=== PATIENT | male | born 1965 | race Caucasian/White ===

== ENCOUNTER 2024-01-11 21:44 | Emergency (ER) | payer MEDICARE, SELFPAY ==
[2024-01-11 21:46] VITALS: BP 145/89; PULSE 100; RESP 18; TEMP 36.8; O2SAT 96; BMI 35.0
--- NOTE | 2024-01-11 21:58 | CT_ITS ---
PROCEDURE INFORMATION: Exam: CT Lumbar Spine Without Contrast Exam date and time: 01/11/2024 10:09 PM Age: 58 years old Clinical indication: Low back pain; Prior surgery; Surgery date: 3-7 days post-operative; Surgery type: Decompression of lumbar spine, l4 & l5 fusion; Additional info: Recent surgery, eval TECHNIQUE: Imaging protocol: Computed tomography of the lumbar spine without contrast. Radiation optimization: All CT scans at this facility use at least one of these dose optimization techniques: automated exposure control; mA and/or kV adjustment per patient size (includes targeted exams where dose is matched to clinical indication); or iterative reconstruction. COMPARISON: No relevant prior studies available. FINDINGS: Limitations: Evaluation is limited by streak artifact. Bones/joints: Grade 1 anterolisthesis of L4 on L5. Patient is status post partial laminectomy and intervertebral disc spacer at the L4/L5 level. The left L5 screw is in close approximation to the lateral wall of the vertebral body, and the disc spacers placed along the left lateral margin of the L4/L5 articulation. Multilevel degenerative changes spine. Soft tissues: Small volume of edema and subcutaneous emphysema about the left paraspinal musculature and superficial fat. IMPRESSION: 1. The left L5 pedicle screw is along the lateral margin of the vertebral body, with majority of the screw appears breeched/not within the vertebral body. Recommend correlation with history/physical exam/immediate postoperative imaging if available. 2. Small volume of fluid and air within the left paraspinal region, this may represent postsurgical soft tissue changes; cannot exclude infectious etiology. Recommend correlation with physical exam and consider further evaluation contrast-enhanced MRI if clinical concern persists.
[2024-01-11] MEDS: METHOCARBAMOL 500MG TABLET 1500 MG PO (22:08)
[2024-01-11] MEDS: OXYCODONE 5MG IMMEDIATE RELEASE TABLET 5 MG PO (22:09)
[2024-01-11] MEDS: DEXAMETHASONE 4MG TABLET 10 MG PO (22:09)
--- NOTE | 2024-01-11 22:15 | HMH.EDGENADL ---
Discharge Plan Disposition Patient Disposition: Xfer Other Prescriptions Prescriptions: New prednisone 20 mg tablet 40 mg PO DAILY 5 Days Qty: 10 0RF Referrals Follow up/Referrals: Erick Wellington [Primary Care Provider] - See instructions Clinical Impressions Clinical Impression: Post-operative pain Instructions Patient Instructions: DI for Low Back Pain Discharge ED Provider: Cr Rea General Adult HPI <Davin Johnson MD - Last Filed: 01/11/24 22:58> General Chief complaint: Back Pain/Injury Stated complaint: postop 01/06 leg back pain Time Seen by Provider: 01/11/24 21:57 Mode of Arrival: Wheelchair Source of Information: Patient Limitations: No Limitations Description of Symptoms (Recalled from ER Triage Doc. by RN): Patient reports he had a surgery for decompression of lumbar spine, L4 & L5 fusion. Was discharged 01/07. On morning 01/08 patient began experiencing increasing pain which he thought was due to over exertion. Pain progressively worsened without relief from prescribed pain medications. He contacted his surgeon on Saturday whom suggested ice and if pain continued to proceed to evaluation in the Emergency department. Surgery done by Dr. Scooby Vazquez at [facility]. History of Present Illness HPI narrative: Please note that above description of symptoms, in this electronic medical record under categorization of recalled from ER triage doctor by RN are reflective of an initial nursing assessment, however, is not reflective of my full history and physical exam that was personally taken and clarified. Consequentially, this preceding description of symptoms, which may include the patient's categorized chief complaint in the EMR, do not reflect my personal clinical impression, and the ultimate description of history of present illness and patient stated complaints should be deferred to this section of the note. Unless stated otherwise or congruent with this section of the note, additional signs, symptoms, or incongruence should be interpreted as inaccurate with my clinical impression. Related Data Previous Rx's Medication Instructions Recorded prednisone 20 mg tablet 40 mg (2 x 20 mg) PO DAILY 5 days 01/11/24 #10 tabs Allergies Allergy/AdvReac Type Severity Reaction Status Date / Time No Known Allergies Allergy Verified 01/11/24 22:10 PFS <Davin Johnson MD - Last Filed: 01/11/24 22:58> [facility] Disclaimer: The information contained in this section may have been updated after the patient was seen, as this information can be updated by other users. Medical History (Updated 01/12/24 @ 00:59 by Cr Rea MD) Hyperlipidemia OCD (obsessive compulsive disorder) Hypertension Diabetes mellitus Surgical History (Updated 01/11/24 @ 22:11 by Elisa Carvajal RN) S/P lumbar fusion Social History (Updated 01/11/24 @ 22:58 by Davin Johnson MD) Smoking Status: Never smoker alcohol intake: never current occupational status: employed Travel in the last 8 weeks: None <Davin Johnson MD - Last Filed: 01/11/24 22:58> ROS Obtained: Yes All systems reviewed & no additional complaints except as documented Physical Exam <Davin Johnson MD - Last Filed: 01/11/24 22:58> General General appearance: alert and in no apparent distress Head Head exam: atraumatic and normocephalic Eye Eye exam: Present normal appearance, PERRL and EOMI ENT ENT exam: Present mucous membranes moist Neck Neck exam: Present normal inspection, full ROM and trachea midline Respiratory Respiratory exam: Absent respiratory distress, wheezes, stridor, accessory muscle use or prolonged expiratory phase Cardiovascular Cardiovascular exam: Present normal rhythm Abdominal Exam Abdominal exam: Present soft; Absent distention, tenderness, guarding, rebound or rigidity Extremities Exam Extremities exam: Absent edema Neurological Exam Neurological exam: Present alert, oriented X3, CN II-XII intact and normal gait; Absent motor sensory deficit Skin Skin exam: Present warm and dry; Absent diaphoresis or erythema Medical Decision Making <Davin Johnson MD - Last Filed: 01/11/24 22:58> Medical Records Medical records reviewed: Yes I reviewed the patient's medical records. Poli Inquiry Pt receiving controlled substance: No Poli was queried for this patient: No Vital Signs: 01/11/24 21:46 Temperature 98.3 F Temperature Source Oral Pulse Rate [Left Radial] 100 H Respiratory Rate 18 Blood Pressure [Right Arm] 145/89 H Blood Pressure Mean [Right Arm] 107 Blood Pressure Source [Right Arm] Automatic Cuff Blood Pressure Position [Right Arm] Sitting 02 Sat by Pulse Oximetry 96 Oxygen Delivery Method Room Air Orders (Tests/Meds): ED MEDICATIONS Discontinued Medications Generic Name Dose Route Start Last Admin Trade Name Freq PRN Reason Stop Dose Admin Dexamethasone 10 mg 01/11/24 21:58 01/11/24 22:09 Dexamethasone 4mg Tablet PO 01/11/24 21:59 10 mg ONCE ONE Administration Lidocaine 1 each 01/11/24 21:58 01/11/24 22:24 Lidocaine 5% Transdermal Patch TP 01/11/24 21:59 Not Given ONCE ONE Methocarbamol 1,500 mg 01/11/24 21:58 01/11/24 22:08 Methocarbamol 500mg Tablet PO 01/11/24 21:59 1,500 mg ONCE ONE Administration Oxycodone HCl 5 mg 01/11/24 21:58 01/11/24 22:09 Oxycodone 5mg Immediate Release Tablet PO 01/11/24 21:59 5 mg ONCE ONE Administration Oxycodone HCl 5 mg 01/12/24 00:03 01/12/24 00:05 Oxycodone 5mg Immediate Release Tablet PO 01/12/24 00:04 5 mg ONCE ONE Administration ORDERS Category Date Time Status CT lumbar spine wo con Stat Cat Scan 01/11/24 21:58 Completed Medical Decision Narrative: Is a 58-year-old male with history of recent L4-L5 decompression and fusion on 01/06 presenting with back pain radiating down to his feet. Patient states he had a fusion done and was uncomplicated. Started having residual and returning pain on 01/08. Has gotten progressively worse since that time. Is on Percocet. That does not seem to be helping. Pain starts in his heels, radiates up toward his hips, primarily on the left. It is 10 out of 10, sharp, stabbing. No bowel or bladder dysfunction, weakness, but pain is unbearable. Physical exam significant for well-appearing male who is in no acute distress, but he is splinting in bed not really moving much. Neurologically intact bilateral lower extremities. No saddle anesthesia. Rectal tone was deferred given patient reported history of normal bowel movements and normal bladder function. History obtained with patient. Differential includes hardware failure, routine postoperative pain, epidural hematoma, among others. Patient was given Toradol, Decadron, Robaxin, Tylenol, lidocaine patch was attempted, but deferred given incision on lower spine. Lumbar spinal imaging without failure of spinal hardware, but prior to final read and disposition, care handed off to oncoming physician. Assistant Product Manager disclaimer Much of this encounter note is an electronic supervisor parachute manufacturing spoken language to printed text. Electronic supervisor parachute manufacturing of the spoken language may permit errors. Although I have reviewed the note, some errors may still exist. <Cr Rea MD - Last Filed: 01/12/24 01:14> Vital Signs: 01/11/24 21:46 Temperature 98.3 F Temperature Source Oral Pulse Rate [Left Radial] 100 H Respiratory Rate 18 Blood Pressure [Right Arm] 145/89 H Blood Pressure Mean [Right Arm] 107 Blood Pressure Source [Right Arm] Automatic Cuff Blood Pressure Position [Right Arm] Sitting 02 Sat by Pulse Oximetry 96 Oxygen Delivery Method Room Air Orders (Tests/Meds): ED MEDICATIONS Discontinued Medications Generic Name Dose Route Start Last Admin Trade Name Freq PRN Reason Stop Dose Admin Dexamethasone 10 mg 01/11/24 21:58 01/11/24 22:09 Dexamethasone 4mg Tablet PO 01/11/24 21:59 10 mg ONCE ONE Administration Lidocaine 1 each 01/11/24 21:58 01/11/24 22:24 Lidocaine 5% Transdermal Patch TP 01/11/24 21:59 Not Given ONCE ONE Methocarbamol 1,500 mg 01/11/24 21:58 01/11/24 22:08 Methocarbamol 500mg Tablet PO 01/11/24 21:59 1,500 mg ONCE ONE Administration Oxycodone HCl 5 mg 01/11/24 21:58 01/11/24 22:09 Oxycodone 5mg Immediate Release Tablet PO 01/11/24 21:59 5 mg ONCE ONE Administration Oxycodone HCl 5 mg 01/12/24 00:03 01/12/24 00:05 Oxycodone 5mg Immediate Release Tablet PO 01/12/24 00:04 5 mg ONCE ONE Administration ORDERS Category Date Time Status CT lumbar spine wo con Stat Cat Scan 01/11/24 21:58 Completed Medical Decision Narrative: Is a 58-year-old male with history of recent L4-L5 decompression and fusion on 01/06 presenting with back pain radiating down to his feet. Patient states he had a fusion done and was uncomplicated. Started having residual and returning pain on 01/08. Has gotten progressively worse since that time. Is on Percocet. That does not seem to be helping. Pain starts in his heels, radiates up toward his hips, primarily on the left. It is 10 out of 10, sharp, stabbing. No bowel or bladder dysfunction, weakness, but pain is unbearable. Physical exam significant for well-appearing male who is in no acute distress, but he is splinting in bed not really moving much. Neurologically intact bilateral lower extremities. No saddle anesthesia. Rectal tone was deferred given patient reported history of normal bowel movements and normal bladder function. History obtained with patient. Differential includes hardware failure, routine postoperative pain, epidural hematoma, among others. Patient was given Toradol, Decadron, Robaxin, Tylenol, lidocaine patch was attempted, but deferred given incision on lower spine. Lumbar spinal imaging without failure of spinal hardware, but prior to final read and disposition, care handed off to oncoming physician. Álvaro BARILLAS: I assumed care of the patient at the time of handoff from the prior provider. On reevaluation, patient reports that his pain is worsening. Given additional oxycodone for pain control. CT imaging was read by radiology as concerning for possible hardware movement given his left L5 pedicle screw is almost completely out of the vertebral body. There may be compression on the left L5 spinal nerve root. This would match with patient's symptoms. The orthopedic surgeon covering for [facility] was called and accepted the patient. I discussed the case with the hospitalist Ju[facility] as well and patient was transferred in stable condition to [facility] for formal evaluation by his surgeon. Assistant Product Manager disclaimer Much of this encounter note is an electronic supervisor parachute manufacturing spoken language to printed text. Electronic supervisor parachute manufacturing of the spoken language may permit errors. Although I have reviewed the note, some errors may still exist. Critical Care <Davin Johnson MD - Last Filed: 01/11/24 22:58> Critical Care Time Critical Care Time: No
[2024-01-12] MEDS: OXYCODONE 5MG IMMEDIATE RELEASE TABLET 5 MG PO (00:05)
--- NOTE | 2024-01-12 00:07 | PC.NURSE ---
Patient resting, reports pain now 8/10, with some improvement, but pain is beginning to increase again. He reported this to provider, medications ordered given at this time. No further needs expressed.
--- NOTE | 2024-01-12 00:16 | PC.NURSE ---
call placed to [facility], request on-vinicio for spine. states will have dr christianson call us back
--- NOTE | 2024-01-12 00:40 | PC.NURSE ---
Dr. Rea on the phone with [facility]
[2024-01-12 01:26] VITALS: BP 141/80; PULSE 99; O2SAT 96
[2024-01-12 01:30] VITALS: BP 130/77; PULSE 106; O2SAT 95
--- NOTE | 2024-01-12 01:32 | PC.NURSE ---
Nurse to nurse report to Jessica RN at [facility] orth[facility].
--- NOTE | 2024-01-12 01:37 | PC.NURSE ---
EMS notified of need for transport when ambulance is available
--- NOTE | 2024-01-12 01:56 | PC.NURSE ---
Patient awaiting transfer to [facility], patient reports some nausea at this time. Provider notified, orders received. Patient reports no further needs at this time.
[2024-01-12 02:00] VITALS: BP 127/68; PULSE 103; O2SAT 95
[2024-01-12] MEDS: MORPHINE 4MG/ML SYRINGE 4 MG IV (02:04)
[2024-01-12] MEDS: ONDANSETRON 4MG/2ML VIAL 4 MG IV (02:04)
--- NOTE | 2024-01-12 02:36 | PC.NURSE ---
Patient currently reports pain 3/10 at this time. No needs expressed at this time. Awaiting EMS transport.
[2024-01-12 03:28] VITALS: BP 124/60; PULSE 104; RESP 18; TEMP 36.7; O2SAT 95
== END 2024-01-12 03:30 | disposition other institution (70) ==
PROVIDERS: Emergency Provider Emergency Medicine; PCP Family Medicine
DX: T84.226A Displacement of internal fixation device of vertebrae, initial encounter (principal); G89.18 Other acute postprocedural pain; Z98.1 Arthrodesis status
CPT/HCPCS: 72131; 96374; 96375; 99285; J2270; J2405